=== PATIENT | female | born 1985 | race Two or more races ===

== ENCOUNTER 2022-12-17 09:57 | Emergency (ER) | payer OTHER ==
[~2022-12-17] VITALS: Ht 165.1 cm; Wt 47.6 kg
== END 2022-12-17 13:34 | disposition home or self-care (01) ==
LOC: ER 09:57
DX: O23.41 Unspecified infection of urinary tract in pregnancy, first trimester (principal); Z3A.12 12 weeks gestation of pregnancy; N39.0 Urinary tract infection, site not specified